=== PATIENT | male | born 1965 | race Caucasian/White ===

== ENCOUNTER 2018-02-27 08:23 | Emergency (ER) | payer OTHER ==
[~2018-02-27] VITALS: Ht 180.3 cm; Wt 77.1 kg
[2018-02-27] MEDS ORDERED: TOBRADEX EYE DR10 ML OP (08:56)
== END 2018-02-27 09:19 | disposition home or self-care (01) ==
LOC: ER 08:23
DX: H11.32 Conjunctival hemorrhage, left eye (principal); H10.12 Acute atopic conjunctivitis, left eye

== ENCOUNTER 2018-03-15 07:48 | Outpatient (CLI) | payer OTHER ==
[~2018-03-15 07:48] MED LIST: TOBRADEX EYE DR10 ML OP
== END 2018-03-15 08:00 | disposition home or self-care (01) ==
LOC: NUCLEAR 07:48
DX: I20.9 Angina pectoris, unspecified (principal)
CPT/HCPCS: 78452; 93017; A9500